=== PATIENT | female | born 1975 | race Hispanic/Latino ===

== ENCOUNTER 2018-07-03 22:48 | Emergency (ER) | payer SELFPAY ==
[2018-07-03 23:05] VITALS: BP 132/60; PULSE 88; RESP 20; TEMP 36.6; O2SAT 98; BMI 26.4
[2018-07-04 00:30] VITALS: BP 133/45; PULSE 80; RESP 19; O2SAT 98
[2018-07-04 00:41] LABS: Add Manual Diff / Slide Review NO; Basophils Absolute Auto 100 /uL (0-100); Basophils Percent Auto 0.7 % (0-2); Eosinophils Absolute Auto 0 /uL (0-450); Eosinophils Percent Auto 0.3 % (2-4); Hematocrit 40.1 % (36-46); Hemoglobin 13.7 g/dL (12.0-16.0); Lymphocytes Absolute Auto 2200 /uL (1100-4500); Lymphocytes Percent Auto 15.5 % (25-40); Mean Corpuscular HGB Conc 34.2 % (30-36); Mean Corpuscular Hemoglobin 28.3 PG (26-34); Mean Corpuscular Volume 82.9 fL (80-100); Monocytes Absolute Auto 900 /uL (0-900); Monocytes Percent Auto 6.3 % (3-14); Neutrophils Absolute Auto 10800 /uL (1500-7000); Neutrophils Percent Auto 77.2 % (50-75); Platelet Count 258 X10^3/uL (150-400); Red Blood Cell Count 4.83 X10^6/uL (4.0-5.2); Red Cell Distribution Width 14.4 % (11.6-14.8); White Blood Cell Count 13.9 X10^3/uL (4.5-11.0)
[2018-07-04 00:45] LABS: INR 1.1 (0.9-1.3); Prothrombin Time 13.2 SECONDS (10.1-12.7)
[2018-07-04 00:48] LABS: PTT Partial Thromboplastin Tim 38 SECONDS (26.4-36.2)
[2018-07-04 00:50] LABS: Alanine Aminotransferase 86 IU/L (9-52); Albumin 4.2 g/dL (3.5-5.0); Albumin Globulin Ratio 1.2 (1.0-2.8); Alkaline Phosphatase 109 U/L (38-126); Aspartate Aminotransferase 66 IU/L (14-36); Bilirubin Total 0.4 mg/dL (0.2-1.3); Blood Urea Nitrogen 13 mg/dL (7-17); Calcium 9.3 mg/dL (8.4-10.2); Carbon Dioxide 25 mmol/L (22-32); Chloride 104 mmol/L (98-107); Estimated Glomerular Filt Rate > 60.0 mL/min (>60); Globulin 3.4 g/dL (1.7-4.1); Glucose 117 mg/dL (70-100); HEMOLYSIS < 15 (0-50); Lipase 56 U/L (23-300); Potassium 3.7 mmol/L (3.4-5.1); Sodium 138 mmol/L (137-145); Total Protein 7.6 g/dL (6.3-8.2)
[2018-07-04 01:00] VITALS: BP 117/64; PULSE 80; RESP 20; O2SAT 100
[2018-07-04 02:29] VITALS: BP 119/60; PULSE 69; RESP 20; O2SAT 96
--- NOTE | 2018-07-04 02:52 | ED_ITS ---
HPI - Abdominal Pain General Chief Complaint: Abdominal Pain Stated Complaint: ABDOMINAL PAIN Time Seen by Provider: 07/04/18 02:51 Source: patient Mode of arrival: ambulatory Limitations: no limitations History of Present Illness HPI narrative: The patient developed left upper abdominal pain yesterday about 4:00 p.m.. She has had 1 episode of vomiting. She has ongoing nausea. She has had no diarrhea. She has not experienced fever or chills with that. Her appetite was normal until yesterday. She has no chronic GI problems. Bowel movements have been normal. She denies dysuria hematuria. She has no history of kidney stones. She denies chronic medical problems. She has been well until yesterday afternoon. The pain is ongoing, and is sharp in nature. The pain is not alleviated by being at rest. Related Data Previous Rx's Medication Instructions Recorded ondansetron 4 mg PO Q4H PRN #10 tab 07/04/18 Allergies Allergy/AdvReac Type Severity Reaction Status Date / Time INGREDIENT: NDA - NO KNOWN Allergy Unknown Uncoded 05/30/17 12:03 DRUG ALLERGIES Review of Systems Review of Systems ROS Unobtainable: All systems reviewed & are unremarkable except as noted in HPI and below Constitutional Denies chills, Denies fever(s), Denies lethargy and Denies weakness Eyes Denies blind spots and Denies change in vision Cardiovascular Denies chest pain, Denies irregular heart rhythm, Denies lightheadedness, Denies palpitations, Denies dyspnea, Denies dyspnea on exertion and Denies orthopnea Respiratory Denies cough, Denies dyspnea, Denies dyspnea on exertion and Denies wheezing Gastrointestinal Gastrointestinal: Reports as per HPI, Reports abdominal pain, Denies change in bowel habits, Denies diarrhea, Reports nausea and Reports vomiting Genitourinary Denies hematuria, Denies dysuria, Denies flank pain, Denies urinary incontinence and Denies urinary urgency Musculoskeletal Denies back pain and Denies limited range of motion Integumentary/Breasts Denies pruritus, Denies erythema, Denies rash and Denies wounds Neurologic Denies confusion and Denies weakness Psychiatric Denies anxiety, Denies confusion, Denies depression, Denies homicidal ideation and Denies suicidal ideation Endocrine Denies palpitations Allergic/Immunologic Denies wheezing [facility] Medical History (Updated 07/04/18 @ 05:15 by J Luis Londono MD) No active medical problems (Acute) Surgical History (Updated 07/04/18 @ 03:04 by J Luis Londono MD) No pertinent past surgical history (Acute) Exam Initial Vital Signs Initial Vital Signs: Vital Signs Temperature 98 F 07/03/18 23:05 Pulse Rate 88 07/03/18 23:05 Respiratory Rate 20 07/03/18 23:05 Blood Pressure 132/60 07/03/18 23:05 Pulse Oximetry 98 07/03/18 23:05 Const General: cooperative and well developed Nutritional Appearance: well nourished Orientation: alert, awake, oriented x3 and not confused HENMT Head: normal to inspection, normocephalic and atraumatic Eyes Conjunctivae: conjunctivae normal Sclera: sclerae normal Chest Chest: normal inspection of the chest Resp Effort & Inspection: normal respiratory effort, able to speak in complete se ntences, no respiratory distress and no use of accessory muscles Auscultation: clear to auscultation bilaterally, no rales, no rhonchi and no wheezes Cardio Rate: regular rate Rhythm: regular rhythm Heart Sounds: no click, no gallops, no murmurs and no rubs Pulses: normal peripheral pulses GI Inspection: non-distended Palpation: soft, no hepatosplenomegaly, No pulsatile mass and tender (Left mid abdomen tenderness without guarding or rebound) Auscultation: normal bowel sounds Back/Spine/Pelvis Back: No CVA tenderness Skin General: no rashes or lesions noted, No jaundice and No petechiae Neuro General: alert, oriented x3, gait normal and no focal motor deficits Speech: speech normal Extrem General: full ROM, no pedal edema and no calf tenderness Course Course Narrative: The patient is feeling much better after receiving IV fluids and meds. She still has slight cramping, but no nausea. She can sips water without nausea. Symptoms are likely most consistent with viral gastroenteritis. She will be discharged on Tylenol and Zofran. She was advised to add drink clear fluids in advance her diet as tolerated. Orders Ordered: ED Orders 07/04/18 00:30 Complete Blood Count AUTO DIFF Stat Comprehensive Metabolic Panel Stat Lipase Stat Partial Thromboplastin Time Stat Prothrombin Time INR Stat 07/04/18 00:33 EKG-12 Lead Stat Discontinued Medications Sodium Chloride (Normal Saline 0.9%) 1,000 mls @ 1,000 mls/hr IV BOLUS ONE Stop: 07/04/18 03:59 Last Infusion: 07/04/18 04:58 Dose: 1,000 mls/hr Admin: 07/04/18 03:16 Dose: 1,000 mls/hr Ketorolac Tromethamine (Toradol) 30 mg IV NOW ONE Stop: 07/04/18 03:01 Last Admin: 07/04/18 03:15 Dose: 30 mg Ondansetron HCl (Zofran) 4 mg IV NOW ONE Stop: 07/04/18 03:01 Last Admin: 07/04/18 03:15 Dose: 4 mg Vital Signs - 8 hr 07/03/18 23:05 07/04/18 00:30 07/04/18 01:00 Temperature 98 F Pulse Rate 88 80 80 Respiratory Rate 20 19 20 Blood Pressure 132/60 Blood Pressure [Left Arm] 133/45 L 117/64 Pulse Oximetry 98 98 100 07/04/18 02:29 07/04/18 04:49 Temperature Pulse Rate 69 77 Respiratory Rate 20 18 Blood Pressure Blood Pressure [Left Arm] 119/60 113/65 Pulse Oximetry 96 99 MDM - Abdominal Pain Lab Data Result diagrams: 07/04/18 00:30 07/04/18 00:30 Lab Results 07/04/18 07/04/18 07/04/18 Range/Units 00:30 00:30 00:30 WBC 13.9 H (4.5-11.0) X10^3/uL RBC 4.83 (4.0-5.2) X10^6/uL Hgb 13.7 (12.0-16.0) g/dL Hct 40.1 (36-46) % MCV 82.9 (80-100) fL MCH 28.3 (26-34) PG MCHC 34.2 (30-36) % RDW 14.4 (11.6-14.8) % Plt Count 258 (150-400) X10^3/uL Neut % (Auto) 77.2 H (50-75) % Lymph % (Auto) 15.5 L (25-40) % [place] % (Auto) 6.3 (3-14) % Eos % (Auto) 0.3 L (2-4) % Baso % (Auto) 0.7 (0-2) % Neut # (Auto) 71238 H (0956-2685) /uL Lymph # (Auto) 2200 (4771-6439) /uL Ector # (Auto) 900 (0-900) /uL Eos # (Auto) 0 (0-450) /uL Baso # (Auto) 100 (0-100) /uL PT 13.2 H (10.1-12.7) SECONDS INR 1.1 (0.9-1.3) APTT 38 H (26.4-36.2) SECONDS Sodium 138 (137-145) mmol/L Potassium 3.7 (3.4-5.1) mmol/L Chloride 104 (98-107) mmol/L Carbon Dioxide 25 (22-32) mmol/L BUN 13 (7-17) mg/dL Creatinine 0.50 L (0.52-1.04) mg/dL Estimated GFR > 60.0 (>60) mL/min BUN/Creatinine Ratio 26.0 H (6-22) Glucose 117 H (70-100) mg/dL Calcium 9.3 (8.4-10.2) mg/dL Total Bilirubin 0.4 (0.2-1.3) mg/dL AST 66 H (14-36) IU/L ALT 86 H (9-52) IU/L Alkaline Phosphatase 109 (38-126) U/L Total Protein 7.6 (6.3-8.2) g/dL Albumin 4.2 (3.5-5.0) g/dL Globulin 3.4 (1.7-4.1) g/dL Albumin/Globulin Ratio 1.2 (1.0-2.8) Lipase 56 (23-300) U/L Point of care testing: Urine Dip Bedside Urine Glucose Negative Bedside Urine Bilirubin - Negative Bedside Urine Ketone +/- 5 Urine Specific [place] 1.015 Bedside Urine Occult Blood - Negative Bedside Urine pH 8.5 Bedside Urine Protein - Negative Bedside Urine Urobilinogen - Negative Bedside Urine Nitrite - Negative Bedside Urine Leukocytes - Negative Esterase Discharge Plan Departure Patient Disposition: Home Clinical Impression: Abdominal pain Qualifiers: Abdominal location: left upper quadrant Qualified Code(s): R10.12 - Left upper quadrant pain Instructions: DI for Viral Gastroenteritis -- Adult Activity Restrictions/Additional Instructions: Zofran every 4 hours as needed for nausea. Tylenol 2 tablets every 4 hours as needed for aches or fever. Once home, initially drink only water and clear fluids. Then advance your diet back to normal as tolerated. Return to the ER as necessary. Prescriptions: New ondansetron 4 mg tablet,disintegrating 4 mg PO Q4H PRN (Reason: nausea and vomiting) Qty: 10 RF: 0
[2018-07-04] MEDS: KETOROLAC 60 MG/2 ML VIAL 30 MG IV (03:15)
[2018-07-04] MEDS: ONDANSETRON 4 MG/2 ML INJ IV (03:15)
[2018-07-04] MEDS: SODIUM CHLORIDE 0.9% 1,000 ML 1000 ML IV (03:16)
[2018-07-04 04:49] VITALS: BP 113/65; PULSE 77; RESP 18; O2SAT 99
== END 2018-07-04 05:25 | disposition home or self-care (01) ==
PROVIDERS: Emergency Provider Emergency Medicine
DX: R10.12 Left upper quadrant pain (principal); R11.2 Nausea with vomiting, unspecified
CPT/HCPCS: 36591; 80053; 81003; 83690; 85025; 85610; 85730; 96361; 96374; 96375; 99283; 99284; J1885; J2405